=== PATIENT | female | born 1980 | race Caucasian/White ===

== ENCOUNTER → 2017-07-28 | Outpatient (CLI) | payer MEDICAID ==
[~2017-07-28] MED LIST: DCS100C PO; DOCU100C37 PO; ESTR0.62 PO; HYDR-34 PO; HYDR-3816 PO; IBP600T1 PO; IBUP-1773 PO; METH-336 PO; SERT25TA PO; SIME80TA16 PO; Simethicone PO
--- NOTE | 2017-07-30 16:56 | Diagnostic Imaging Report ---
EXAMINATION: Bilateral screening mammogram 2D views with tomosynthesis The current study was also evaluated with a Computer Aided Detection (CAD) system. INDICATION: Screening. No current complaints stated on the questionnaire. COMPARISON: None. This is a baseline study. FINDINGS: The breasts are composed of heterogenous parenchyma which may decrease mammographic sensitivity. There is an oval asymmetry measuring the 0.8 cm seen in the central aspect of the right breast between the anterior and middle depth. It appears to correspond with a slightly superior indication on the MLO projection. The left breast demonstrates no definite mass, architectural distortion or suspicious calcification. IMPRESSION: 8 mm focal asymmetry is seen in the central upper aspect of the right breast. Evaluation with focal compression view and ultrasound is recommended. ACR BI-RADS Category 0: Incomplete. (Needs additional imaging evaluation). Result letter will be mailed to the patient. Note: At least 10% of breast cancer is not imaged by mammography. Dictated by: Dictated on workstation # [id number]
== END ==
LOC: RAD 10:28
PROVIDERS: ATTEND Nurse Practitioner Family
DX: Z12.31 Encounter for screening mammogram for malignant neoplasm of breast (principal)
CPT/HCPCS: 77067

== ENCOUNTER → 2017-08-11 | Outpatient (CLI) | payer MEDICAID ==
--- NOTE | 2017-08-11 08:13 | Diagnostic Imaging Report ---
Diagnostic right breast mammogram with tomography evaluation. INDICATION: Lateral right breast asymmetry. FINDINGS: There is an outer right breast oval asymmetry confirmed on tomographic view with suggestion of central low-density in favor of an intramammary lymph node. It measures about 8 mm in size and is projecting superiorly on the lateral view at the junction between the anterior and middle thirds of the right breast. IMPRESSION: Confirmed 8-mm lobulated nodule in the outer upper aspect of the right breast anteriorly with findings suggestive of an intramammary lymph node. Ultrasound evaluation pending. ACR BI-RADS Category 0: Incomplete. (Needs additional imaging evaluation). Result letter will be mailed to the patient. Note: At least 10% of breast cancer is not imaged by mammography. Dictated by: Dictated on workstation # [id number]
--- NOTE | 2017-08-11 09:55 | Diagnostic Imaging Report ---
Right breast ultrasound. INDICATION: Nodule in the upper-outer aspect of the right breast anteriorly. FINDINGS: There is a cluster of cysts measuring collectively 8 x 4 x 6 mm at 11 o'clock zone, 3 cm from the nipple. Its shape and size matches the mammographic abnormality. In the upper-outer quadrant, no other lesion or suspicious abnormality identified. IMPRESSION: There is a cluster of cysts that matches the mammographic abnormality with no suspicious lesion seen. ACR BI-RADS Category 2: Benign findings. Result letter will be mailed to the patient. Note: At least 10% of breast cancer is not imaged by mammography. Dictated by: Dictated on workstation # [id number]
== END ==
LOC: RAD 07:25
PROVIDERS: ATTEND Nurse Practitioner Family
DX: R92.8 Other abnormal and inconclusive findings on diagnostic imaging of breast (principal)

== ENCOUNTER 2018-03-01 02:29 | Emergency (ER) | payer MEDICAID ==
[~2018-03-01] VITALS: Ht 170.2 cm; Wt 92.5 kg
[~2018-03-01 02:29] MED LIST changes: -HYDR-3816 PO
--- OUTSIDE RECORDS SUMMARY | 2018-03-01 02:35 | XMS REPORT ---
Author Author ROBERT CHANG [facility] [employer] Address Unknown Phone Unavailable Care Team Providers Care Chart Collector Name Role Phone ROBERT CHANG CP Unavailable Allergies, Adverse Reactions, Alerts Substance Reaction Event Type N.K.D.A. Info Not Available Non Drug Allergy Problems Problem Type Condition Code Onset Dates Condition Status Assessment History of alcoholism F10.21 Active Problem General medical examination Z00.00 Active Problem History of gestational diabetes Z86.32 Active Problem Mixed hyperlipidemia E78.2 Active Assessment Mixed hyperlipidemia E78.2 Active Assessment Left groin pain R10.30 Active Problem Menopausal disorder N95.9 Active Assessment Menopausal disorder N95.9 Active Medications Medication Code System Code Instructions Start Date End Date Status Dosage Fiber NDC 0 Orally not defined Doculase NDC 0 not defined Calcium [facility] [address]-77 150 [place] [address]-11 0.9 MG Orally Once a day 1 tablet Fish Oil [facility] [address]-86 1000 MG Orally Once a day 2 capsule Pravastatin Sodium [facility] [address]-81 10 mg Orally Once a day at bedtime April 04, 2016 1 tablet Sertraline HCl [facility] [address]-05 50 mg Orally Once a day 1.5 tablet Procedures Procedure Coding System Code Date Office Visit, Est Pt., Level 4 CPT-4 99928 May 22, 2016 VENIPUNCT, ROUTINE* CPT-4 80886 May 22, 2016 [facility] CPT-4 NOBLL May 22, 2016 Vital Signs Date/Time: May 22, 2016 Cardiac Monitoring Heart Rate 78 bpm Weight 222.7 lbs Height 67 in Blood Pressure Diastolic 78 mmHg Blood Pressure Systolic 119 mmHg Results No Known Results Summary Purpose eClinicalWorks Submission
--- OUTSIDE RECORDS SUMMARY | 2018-03-01 02:35 | XMS REPORT ---
Author Author KEN OLEARY [facility] Address [address] [place] [address] Care Team Providers Care Career Based Intervention Coordinator Name Role Phone KEN OLEARY Unavailable PROBLEMS Type Condition ICD9-CM Code AVZ72-HQ Code Onset Dates Condition Status SNOMED Code Problem Generalized anxiety disorder F41.1 Active 38542585 Problem ADHD, predominantly inattentive type F90.0 Active 00053164 Problem History of gestational diabetes Z86.32 Active 380524293 Problem Menopausal disorder N95.9 Active 000568242 Problem Mixed hyperlipidemia E78.2 Active 971234601 Problem General medical examination Z00.00 Active 295942787 ALLERGIES No Known Allergies SOCIAL HISTORY No smoking Hx information available PLAN OF CARE Activity Details Follow Up 3 Weeks Reason:BH F/U VITAL SIGNS MEDICATIONS No Known Medications RESULTS No Results PROCEDURES Procedure Date Ordered Related Diagnosis Body Site Psychotherapy, patient &/family, 45 minutes, established patient Nov 05, 2016 IMMUNIZATIONS No Known Immunizations
--- OUTSIDE RECORDS SUMMARY | 2018-03-01 02:35 | XMS REPORT ---
Author Author DELIA MELENDREZ [facility] Address [address] Care Team Providers Care Marketing Area Manager Name Role Phone DELIA MELENDREZ Unavailable PROBLEMS Type Condition ICD9-CM Code SEO88-PA Code Onset Dates Condition Status SNOMED Code Problem Mixed hyperlipidemia E78.2 Active 271322988 Problem General medical examination Z00.00 Active 777423437 Assessment Counseling on substance use and abuse Z71.89 07 May, 2016 Active 173878093 Problem History of gestational diabetes Z86.32 Active 574877504 Problem Menopausal disorder N95.9 Active 683363097 ALLERGIES Unknown Allergies SOCIAL HISTORY No smoking Hx information available PLAN OF CARE VITAL SIGNS MEDICATIONS Unknown Medications RESULTS No Results PROCEDURES Procedure Date Ordered Related Diagnosis Body Site AUDIT/DAST, 15-30 MIN May 22, 2016 IMMUNIZATIONS No Known Immunizations
--- OUTSIDE RECORDS SUMMARY | 2018-03-01 02:35 | XMS REPORT ---
Author Author DELIA MELENDREZ [facility] [employer] Address Unknown Phone Unavailable Care Team Providers Care Operating Engineer Name Role Phone DELIA MELENDREZ Unavailable Allergies No Known Allergies Problems Problem Type Condition Code Onset Dates Condition Status Problem General medical examination Z00.00 Active Problem History of gestational diabetes Z86.32 Active Problem Mixed hyperlipidemia E78.2 Active Problem Menopausal disorder N95.9 Active Medications No Known Medications Results No Known Results Summary Purpose eClinicalWorks Submission
--- OUTSIDE RECORDS SUMMARY | 2018-03-01 02:35 | XMS REPORT ---
Author Author SVEN KLINE Organization [employer] Address Unknown Phone Unavailable Care Team Providers Care Swing Type Lathe Operator Name Role Phone SVEN KLINE CP Unavailable Allergies, Adverse Reactions, Alerts Substance Reaction Event Type N.K.D.A. Info Not Available Non Drug Allergy Problems Problem Type Condition Code Onset Dates Condition Status Problem General medical examination Z00.00 Active Problem History of gestational diabetes Z86.32 Active Problem Mixed hyperlipidemia E78.2 Active Problem Menopausal disorder N95.9 Active Assessment Coccyx pain M53.3 Active Medications Medication Code System Code Instructions Start Date End Date Status Dosage Ibuprofen [facility] [address]-67 800 MG Orally Three times a day Aug 26, 2016 Sep 10, 2016 1 tablet Calcium [facility] [address]-82 150 MG Orally not defined Premarin [facility] [address]-91 0.9 MG Orally Once a day 1 tablet Pravastatin Sodium [facility] 61057682606 10 mg Orally Once a day at bedtime 1 tablet Doculase NDC 0 not defined Fiber NDC 0 Orally not defined Ibuprofen [facility] [address]-28 200 MG Orally every 6 hrs 4 tablet as needed Hydrocodone-Acetaminophen [facility] [address]-23 5-325 MG Orally every 6 hrs Aug 26, 2016 Aug 31, 2016 1 tablet as needed Procedures Procedure Coding System Code Date TORADOL (IM) 60 MG/2ML (UP TO 15 MG) CPT-4 J1885 Aug 26, 2016 THER/PROPH/DIAG INJ, SC/IM CPT-4 46197 Aug 26, 2016 X-RAY EXAM OF TAILBONE CPT-4 42018 Aug 26, 2016 Office Visit, Est Pt., Level 3 CPT-4 58155 Aug 26, 2016 Vital Signs Date/Time: Aug 26, 2016 Cardiac Monitoring Heart Rate 92 bpm Weight 228.0 lbs Height 67 in BMI 35.71 Index Blood Pressure Diastolic 70 mmHg Blood Pressure Systolic 104 mmHg Results No Known Results Summary Purpose eClinicalWorks Submission
--- OUTSIDE RECORDS SUMMARY | 2018-03-01 02:35 | XMS REPORT ---
Author Author KEN OLEARY [facility] Address [address] [place] [address] Care Team Providers Care Professor Of Spanish Name Role Phone KEN OLEARY Unavailable PROBLEMS Type Condition ICD9-CM Code BSF67-WM Code Onset Dates Condition Status SNOMED Code Assessment Generalized anxiety disorder F41.1 Oct, Active 13620615 Problem Generalized anxiety disorder F41.1 Active 88050555 Problem ADHD, predominantly inattentive type F90.0 Active 27459630 Problem History of gestational diabetes Z86.32 Active 881512507 Problem Menopausal disorder N95.9 Active 069496163 Problem Mixed hyperlipidemia E78.2 Active 240923305 Problem General medical examination Z00.00 Active 410626301 ALLERGIES Unknown Allergies SOCIAL HISTORY No smoking Hx information available PLAN OF CARE VITAL SIGNS MEDICATIONS Unknown Medications RESULTS No Results PROCEDURES Procedure Date Ordered Related Diagnosis Body Site Psychotherapy, patient &/family, 45 minutes, established patient Oct 29, 2016 IMMUNIZATIONS No Known Immunizations
--- OUTSIDE RECORDS SUMMARY | 2018-03-01 02:35 | XMS REPORT ---
Author Author KEN OLEARY [facility] Address [address] [place] [address] Care Team Providers Care Classified Ad Clerk Name Role Phone KEN OLEARY Unavailable PROBLEMS Type Condition ICD9-CM Code PVS32-PA Code Onset Dates Condition Status SNOMED Code Problem Generalized anxiety disorder F41.1 Active 04419637 Problem ADHD, predominantly inattentive type F90.0 Active 11535237 Problem Menopausal disorder N95.9 Active 273277203 Problem General medical examination Z00.00 Active 005074452 Problem Mixed hyperlipidemia E78.2 Active 806935812 Problem History of gestational diabetes Z86.32 Active 471986384 ALLERGIES No Known Allergies SOCIAL HISTORY No smoking Hx information available PLAN OF CARE Activity Details Follow Up 3 Weeks Reason:BH F/U VITAL SIGNS MEDICATIONS No Known Medications RESULTS No Results PROCEDURES Procedure Date Ordered Related Diagnosis Body Site Psychotherapy, patient &/family, 45 minutes, established patient Nov 26, 2016 IMMUNIZATIONS No Known Immunizations
--- OUTSIDE RECORDS SUMMARY | 2018-03-01 02:35 | XMS REPORT ---
Author Author LISANDRO ÁLVAREZ Organization [facility] Address [address] [place] [address] Care Team Providers Care Wedding Designer Name Role Phone LISANDRO ÁLVAREZ Unavailable PROBLEMS Type Condition ICD9-CM Code TGF60-GT Code Onset Dates Condition Status SNOMED Code Problem Generalized anxiety disorder F41.1 Active 81928556 Problem ADHD, predominantly inattentive type F90.0 Active 59355252 Problem Menopausal disorder N95.9 Active 142722189 Problem General medical examination Z00.00 Active 419092636 Problem Mixed hyperlipidemia E78.2 Active 014873622 Problem History of gestational diabetes Z86.32 Active 633558528 ALLERGIES No Known Allergies SOCIAL HISTORY Never Assessed PLAN OF CARE Activity Details Follow Up prn Reason: VITAL SIGNS Height 67 in 2017-04-14 Weight 182.6 lbs 2017-04-14 Temperature 97.8 degrees Fahrenheit 2017-04-14 Heart Rate 80 bpm 2017-04-14 Respiratory Rate 20 2017-04-14 BMI 28.60 kg/m2 2017-04-14 Blood pressure systolic 106 mmHg 2017-04-14 Blood pressure diastolic 70 mmHg 2017-04-14 MEDICATIONS Medication Instructions Dosage Frequency Start Date End Date Duration Status PredniSONE 20 MG Orally Once a day 2 tablet 24h March, Apr, 5 days Active Vyvanse 70 MG Orally Once a day 1 capsule in the morning 24h Active Premarin 0.9 MG Orally Once a day 1 tablet 24h 90 days Active Fiber Active Calcium 150 MG Active Pravastatin Sodium 10 mg Orally Once a day at bedtime 1 tablet Active RESULTS No Results PROCEDURES Procedure Date Ordered Result Body Site SOLUMEDROL (UP TO 125 MG) April 14, 2017 THER/PROPH/DIAG INJ, SC/IM April 14, 2017 IMMUNIZATIONS Vaccine Route Administration Date Status SOLUMEDROL (UP TO 125 MG) IM Intramuscular April 14, 2017 Administered MEDICAL (GENERAL) HISTORY Type Description Date Medical History gestational diabetes with all 3 children Medical History Endometriosis, Ovarian Cysts and Resulted in JOSE with Both Ovaries taken Medical History Recovered Alcoholic Clean nearly 3 years Surgical History section x3 Surgical History cyst removal Surgical History hysterectomy, total Surgical History Emergency Oophorectomy for contorted ovary Right Surgical History Left Oopherectomy 2010 Hospitalization History Surgery(s)/Childbirth(s) only
--- OUTSIDE RECORDS SUMMARY | 2018-03-01 02:35 | XMS REPORT | Continuity of Care Document ---
Author Author [facility] Address Unknown Phone Unavailable Allergies Active Description Code Type Severity Reaction Onset Reported/Identified Relationship to Patient Clinical Status Yes codeine [id number] Drug Allergy Unknown NAUSEA 12/27/2014 Yes codeine Drug Allergy N/A N/A 03/08/2015 Medications There is no data. Problems Date Dx Coded Attending Type Code Diagnosis Diagnosed By 12/27/2014 AV PASTRANA APRN Ot 427.69 PREMATURE BEATS NEC 12/27/2014 AV PASTRANA APRN Ot 785.1 PALPITATIONS 03/08/2015 SHERRI HARRISON APRN 625.3 DYSMENORRHEA 03/08/2015 SHERRI HARRISON APRN 626.2 MENORRHAGIA 05/08/2015 VINNIE EDWARDS DO Ot 625.9 05/08/2015 VINNIE EDWARDS DO Ot 626.9 05/25/2015 VINNIE EDWARDS DO Ot 568.0 PERITONEAL [id number]-[id number]-VQ/INF 05/25/2015 VINNIE EDWARDS DO Ot 614.6 FEM PELVIC PERITON ADH-POST-OP/INF 05/25/2015 VINNIE EDWARDS DO Ot 617.0 UTERINE ENDOMETRIOSIS 05/25/2015 VINNIE EDWARDS DO Ot 620.8 NONINFL DIS OVA/ADNX NEC 05/25/2015 VINNIE EDWADRS DO Ot 621.2 HYPERTROPHY OF UTERUS 05/25/2015 VINNIE EDWARDS DO Ot 621.8 DISORDERS OF UTERUS NEC 05/25/2015 VINNIE EDWARDS DO Ot 625.3 DYSMENORRHEA 05/25/2015 VINNIE EDWARDS DO Ot 626.2 EXCESSIVE MENSTRUATION 05/29/2015 VINNIE EDWARDS DO Ot 621.2 05/29/2015 VINNIE EDWARDS DO Ot 625.3 05/29/2015 VINNIE EDWARDS DO Ot 626.9 05/29/2015 VINNIE EDWARDS DO Ot V72.63 05/29/2015 FENECH DOVINNIE Ot V74.8 07/17/2015 FENECH DO, VINNIE Olsen Ot 625.9 07/17/2015 FENECH DO, VINNIE Olsen Ot 626.9 07/17/2015 FENECH DO, VINNIE Olsen Ot 621.2 07/17/2015 FENECH DO, VINNIE Olsen Ot 625.3 07/17/2015 FENECH DO, VINNIE Olsen Ot 626.9 07/17/2015 FENECH DO, VINNIE Olsen Ot V72.63 07/17/2015 FENECH DO, VINNIE Olsen Ot V74.8 07/17/2015 FENECH DO, VINNIE Olsen Ot 625.9 07/17/2015 FENECH DO, VINNIE Olsen Ot 626.9 07/17/2015 FENECH DO, VINNIE Olsen Ot 621.2 07/17/2015 FENECH DO, VINNIE Olsen Ot 625.3 07/17/2015 FENECH DO, VINNIE Olsen Ot 626.9 07/17/2015 FENECH DO, VINNIE Olsen Ot V72.63 07/17/2015 FENECH DO, VINNIE Olsen Ot V74.8 07/18/2015 FENECH DO, VINNIE Olsen Ot 620.5 TORSION OF OVARY OR TUBE 07/28/2017 GRACE DO VINNIE S Ot 625.9 FEM GENITAL SYMPTOMS NOS 07/28/2017 GRACE MUÑOZ VINNIE S Ot 626.9 MENSTRUAL DISORDER NOS 07/28/2017 GRACE MUÑOZ VINNIE S Ot 621.2 HYPERTROPHY OF UTERUS 07/28/2017 GRACE MUÑOZ VINNIE Olsen Ot 625.3 DYSMENORRHEA 07/28/2017 GRACE MUÑOZ VINNIE Olsen Ot 626.9 MENSTRUAL DISORDER NOS 07/28/2017 GRACE MUÑOZ VINNIE Olsen Ot V72.63 PRE-PROCEDURAL LABORATORY EXAMINATION 07/28/2017 GRACE MUÑOZ VINNIE Olsen Ot V74.8 SCREEN-BACTERIAL DIS NEC 08/12/2017 MAMADOU CARRILLO Ot Z12.31 ENCNTR SCREEN MAMMOGRAM FOR MALIGNANT NE 08/12/2017 MAMADOU CARRILLO Ot R92.8 OTH ABN AND INCONCLUSIVE FINDINGS ON DX 08/25/2017 MAMADOU CARRILLO Ot R92.8 OTH ABN AND INCONCLUSIVE FINDINGS ON DX 09/23/2017 GRACE MUÑOZ VINNIE S Ot 625.9 FEM GENITAL SYMPTOMS NOS 09/23/2017 FENVINNIE AMADOR DO Ot 626.9 MENSTRUAL DISORDER NOS 09/23/2017 VINNIE EDWARDS DO Ot 621.2 HYPERTROPHY OF UTERUS 09/23/2017 VINNIE EDWARDS DO Ot 625.3 DYSMENORRHEA 09/23/2017 VINNIE EDWARDS DO Ot 626.9 MENSTRUAL DISORDER NOS 09/23/2017 VINNIE EDWARDS DO Ot V72.63 PRE-PROCEDURAL LABORATORY EXAMINATION 09/23/2017 VINNIE EDWARDS DO Ot V74.8 SCREEN-BACTERIAL DIS NEC 09/23/2017 MAMADOU CARRILLO BRINA Ot Z12.31 ENCNTR SCREEN MAMMOGRAM FOR MALIGNANT NE 09/23/2017 MAMADOU CARRILLO BRNIA Ot R92.8 OTH ABN AND INCONCLUSIVE FINDINGS ON DX 10/13/2017 JARAD CABRERA [employer] PLANT OPERATOR Ot K57.32 DVTRCLI OF LG INT W/O PERFORATION OR ABS Procedures Code [place] [address] TEST, URINE (IN- HOUSE) 03/08/2015 Results There is no data. Encounters ACCT No. Visit Date/Time Discharge Status Pt. Type Provider Facility Loc./Unit Complaint [id number] 03/08/2015 17:13:00 03/08/2015 23:59:59 CLS Outpatient SHERRI HARRISON APRN [id number] 09/23/2017 08:02:00 09/23/2017 23:59:59 CLS Outpatient JARAD CABRERA APRN [facility] RAD L FLANK PAIN, HEMATURIA [id number] 08/11/2017 07:25:00 08/11/2017 23:59:59 CLS Outpatient MAMADOU CARRILLO [facility] RAD ABN MAMMO R92.8 [id number] 07/28/2017 10:28:00 07/28/2017 23:59:59 CLS Outpatient MAMADOU CARRILLO [facility] RAD Z12.31 [id number] 07/17/2015 16:50:00 07/18/2015 08:50:00 DIS Outpatient VINNIE EDWARDS DO [facility] DIAGNOSTIC LAPAROSCOPY,POSSIBLE LEFT OOPHORECTOMY [id number] 05/24/2015 06:11:00 05/25/2015 11:00:00 DIS Outpatient VINNIE EDWARDS DO [facility] SDC ABNORMAL UTERINE BLEEDING [id number] 05/15/2015 09:00:00 05/15/2015 23:59:59 CLS Outpatient VINNIE EDWARDS DO [facility] PREOP ABNORMAL UTERINE BLEEDING [id number] 04/18/2015 12:10:00 04/18/2015 23:59:59 CLS Outpatient VINNIE EDWARDS DO [facility] RAD AUV [id number] 12/27/2014 22:13:00 12/27/2014 23:31:00 DIS Emergency AV PASTRANA APRN [facility] ER HEART PALPITATIONS;SOA [id number] 02/10/2018 13:10:00 02/10/2018 23:59:59 CLS Outpatient [facility]
[2018-03-01] MEDS ORDERED: LACTATED RINGERS 1,000 ML IV ONE (02:58)
[2018-03-01] MEDS ORDERED: metroNIDAZOLE 500MG/100ML IVPB 100 ML IV ONE (03:00)
[2018-03-01] MEDS ORDERED: KETOROLAC 30 MG/ML VIAL IV ONE (03:00)
[2018-03-01] MEDS ORDERED: CIPROFLOXACIN IV 400MG/200ML 200 ML IV ONE (03:00)
[2018-03-01 03:10] LABS: BASOPHILS % (AUTO) 0 % (0-10); EOSINOPHILS # (AUTO) 0.2 10^3/uL (0.0-0.3); EOSINOPHILS % (AUTO) 3 % (0-10); HEMATOCRIT 38 % (35-52); HEMOGLOBIN 12.8 G/DL (11.5-16.0); LYMPHOCYTES % (AUTO) 33 % (12-44); MEAN CORPUSCULAR HEMOGLOBIN 28 PG (25-34); MEAN CORPUSCULAR HGB CONC 34 G/DL (32-36); MEAN CORPUSCULAR VOLUME 84 FL (80-99); MEAN PLATELET VOLUME 10.3 FL (7.4-10.4); MONOCYTES # (AUTO) 0.8 X 10^3 (0.0-1.0); MONOCYTES % (AUTO) 9 % (0-12); NEUTROPHILS # (AUTO) 5.1 X 10^3 (1.8-7.8); NEUTROPHILS % (AUTO) 56 % (42-75); PLATELET COUNT 244 10^3/uL (130-400); RED CELL DISTRIBUTION WIDTH 12.3 % (10.0-14.5); WHITE BLOOD COUNT 9.1 10^3/uL (4.3-11.0)
[2018-03-01 03:13] LABS: BILIRUBIN,URINE NEGATIVE (NEGATIVE); CLARITY,URINE CLEAR; COLOR,URINE YELLOW; GLUCOSE, URINE (UA) NEGATIVE (NEGATIVE); KETONES,URINE NEGATIVE (NEGATIVE); LEUKOCYTE ESTERASE ,URINE NEGATIVE (NEGATIVE); NITRITE,URINE NEGATIVE (NEGATIVE); PH,URINE 6 (5-9); PROTEIN,URINE NEGATIVE (NEGATIVE); UROBILINOGEN,URINE NORMAL (NORMAL)
[2018-03-01 03:20] LABS: BACTERIA,URINE TRACE /HPF
[2018-03-01 03:28] LABS: ALANINE AMINOTRANSFERASE 11 U/L (0-55); ALBUMIN 4.1 GM/DL (3.2-4.5); ALKALINE PHOSPHATASE 76 U/L (40-136); BILIRUBIN,TOTAL 0.4 MG/DL (0.1-1.0); BUN/CREATININE RATIO 13; CARBON DIOXIDE 24 MMOL/L (21-32); CHLORIDE 106 MMOL/L (98-107); CREATININE SERUM 0.72 MG/DL (0.60-1.30); GFR ESTIMATED > 60; GLUCOSE 96 MG/DL (70-105); POTASSIUM 3.8 MMOL/L (3.6-5.0); SODIUM 139 MMOL/L (135-145); TOTAL PROTEIN 6.5 GM/DL (6.4-8.2)
[2018-03-01] MEDS ORDERED: ESTR0.9T (03:38)
[2018-03-01] MEDS ORDERED: PRAV10TA (03:38)
[2018-03-01] MEDS ORDERED: ALPR0.5T7 (03:38)
[2018-03-01] MEDS ORDERED: LISD50CA (03:38)
[2018-03-01] MEDS ORDERED: IOHEXOL 350 MG/ML 100 ML (OMNIPAQUE 350) VIAL IV ONE (03:45)
[2018-03-01] MEDS ORDERED: NS 250 ML (IVPB) BAG IV ONE (03:45)
--- NOTE | 2018-03-01 03:49 | ED Abdominal Pain ---
General Chief Complaint: Abdominal/GI Problems Stated Complaint: L SIDE PAIN Nursing Triage Note: PT REPORTS PAIN IN LEFT LOWER QUADRANT SINCE 1700 YESTERDAY. PT REPORTS FEELING SIMILAR TO DIVERTICULITIS HX. Sepsis Screen: No Definite Risk Source of Information: Patient Exam Limitations: No Limitations History of Present Illness Date Seen by Provider: Mar 01, 2018 Time Seen by Provider: 02:40 Initial Comments The patient presents to the ER by private conveyance with chief complaint that tonight she started having some left lower quadrant abdominal pain. She had a normal bowel movement yesterday. No fevers chills or nausea. The history of diverticulitis and was what she suspects is going on tonight. She is sustained no trauma. She takes cement anxiety medicines. She is not had anything for pain tonight and does not want anything narcotic if she can avoid it. She has nausea medicines at home but has not had to use them. She is also concerned because she has a large test today that she needs to take. She has a history of surgical hysterectomy and later had her ovaries removed secondary to torsion. She has had 3 C-sections and 9 separate laparoscopies for ovarian cysts. She has her own gallbladder and appendix still intact. Allergies and Home Medications Allergies Coded Allergies: codeine (Verified Allergy, Unknown, NAUSEA, 12/27/14) Home Medications Ciprofloxacin HCl 500 Mg Tablet, 500 MG PO BID Prescribed by: SHARYN LASSITER on 03/01/18414 Docusate Sodium 100 Mg Capsule, 100 MG PO BID PRN for CONSTIPATION Prescribed by: VINNIE EDWARDS on 07/18/15 08 Hydrocodone Bit/Acetaminophen 1 Each Tablet, 1-2 EA PO Q6H PRN for PAIN Prescribed by: VINNIE EDWARDS on 07/18/15809 Ibuprofen 600 Mg Tablet, 600 MG PO Q6H PRN for PAIN Prescribed by: VINNIE EDWARDS on 07/18/15809 Metronidazole 500 Mg Tablet, 500 MG PO Q8H Prescribed by: SHARYN LASSITER on 03/01/18414 Sertraline HCl 25 Mg Tablet, 25 MG PO DAILY, (Reported) Simethicone 80 Mg Tab.chew, 40 MG PO TID PRN for INDIGESTION Prescribed by: VINNIE EDWARDS on 07/18/15 08 Patient Home Medication List Home Medication List Reviewed: Yes Review of Systems Constitutional: No chills, No diaphoresis, No fever, No malaise EENTM: No Blurred Vision, No Double Vision Respiratory: Denies Cough, Denies Shortness of Air Cardiovascular: Denies Chest Pain, Denies Edema Gastrointestinal: See HPI; Denies Abdomen Distended; Abdominal Pain; Denies Blood Streaked Stools, Denies Constipated, Denies Diarrhea, Denies Nausea Genitourinary: Denies Burning, Denies Discharge, Denies Drainage Musculoskeletal: No back pain, No joint pain Past Kllthwf-Vwevmy-Tdlizz Hx Patient Social History Alcohol Use: Occasionally Uses Recreational Drug Use: No Smoking Status: Never a Smoker Recent Foreign Travel: No Contact w/Someone Who Travel: No Recent Infectious Disease Expo: No Recent Hopitalizations: No Seasonal Allergies Seasonal Allergies: No Past Medical History Surgeries: Yes (C/S X3, DXLS X3 R/T ENDOMETROISIS AND OVARIAN CYST) Section, Hysterectomy, Oophorectomy, Tonsillectomy Respiratory: No Cardiac: Yes (PVC AT TIMES) Neurological: No 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 Genitourinary: No Gastrointestinal: No Musculoskeletal: No Endocrine: No HEENT: No Cancer: No Psychosocial: Yes Anxiety, Depression Integumentary: No Blood Disorders: No Adverse Reaction/Blood Tranf: No Family Medical History Alcoholism 19 FATHER Arthritis GRANDPARENTS Cataracts GRANDPARENTS Diabetes mellitus GRANDPARENTS FH: breast cancer GRANDPARENTS No Family History of: AIDS Abdominal aortic aneurysm Asthma Cancer of mouth Cardiovascular disease Colon cancer Completed stroke Dementia Drug abuse Glaucoma Hypertension Kidney disease Myocardial infarction Parkinson's disease Prostate cancer Psychosocial problem Respiratory disorder Seizure disorder Severe allergy Thyroid disease Tuberculosis No Pertinent Family Hx Physical Exam Vital Signs Vital Signs - First Documented 03/01/18 02:38 Temp 97.0 Pulse 76 Resp 20 B/P (MAP) 124/74 (91) Pulse Ox 98 O2 Delivery Room Air Capillary Refill : Less Than 3 Seconds General Appearance: WD/WN, mild distress HEENT: PERRL/EOMI, pharynx normal Neck: non-tender, supple, normal inspection Respiratory: chest non-tender, lungs clear, normal breath sounds, no respiratory distress, no accessory muscle use Cardiovascular: normal peripheral pulses, regular rate, rhythm, no edema Peripheral Pulses: 2+ Radial Pulses (R), 2+ Radial Pulses (L) Gastrointestinal: normal bowel sounds, soft, tenderness (left lower quadrant) Neurologic/Psychiatric: alert, normal mood/affect, oriented x 3 Skin: normal color, warm/dry Progress/Results/Core Measures Lab Results Laboratory Tests Test 03/01/18 02:40 03/01/18 02:58 Range/Units Urine Color YELLOW Urine Clarity CLEAR Urine pH 6 5-9 Urine Specific [place] 1.020 1.016-1.022 Urine Protein NEGATIVE NEGATIVE Urine Glucose (UA) NEGATIVE NEGATIVE Urine Ketones NEGATIVE NEGATIVE Urine Nitrite NEGATIVE NEGATIVE Urine Bilirubin NEGATIVE NEGATIVE Urine Urobilinogen NORMAL NORMAL MG/DL Urine Leukocyte Esterase NEGATIVE NEGATIVE Urine RBC (Auto) 1+ H NEGATIVE Urine RBC 2-5 H /HPF Urine WBC NONE /HPF Urine Squamous Epithelial Cells 2-5 /HPF Urine Crystals NONE /LPF Urine Bacteria TRACE /HPF Urine Casts NONE /LPF Urine Mucus NEGATIVE /LPF Urine Culture Indicated NO White Blood Count 9.1 4.3-11.0 10^3/uL Red Blood Count 4.50 4.35-5.85 10^6/uL Hemoglobin 12.8 11.5-16.0 G/DL Hematocrit 38 35-52 % Mean Corpuscular Volume 84 80-99 FL Mean Corpuscular Hemoglobin 28 25-34 PG Mean Corpuscular Hemoglobin Concent 34 32-36 G/DL Red Cell Distribution Width 12.3 10.0-14.5 % Platelet Count 244 130-400 10^3/uL Mean Platelet Volume 10.3 7.4-10.4 FL Neutrophils (%) (Auto) 56 42-75 % Lymphocytes (%) (Auto) 33 12-44 % Monocytes (%) (Auto) 9 0-12 % Eosinophils (%) (Auto) 3 0-10 % Basophils (%) (Auto) 0 0-10 % Neutrophils # (Auto) 5.1 1.8-7.8 X 10^3 Lymphocytes # (Auto) 3.0 1.0-4.0 X 10^3 Monocytes # (Auto) 0.8 0.0-1.0 X 10^3 Eosinophils # (Auto) 0.2 0.0-0.3 10^3/uL Basophils # (Auto) 0.0 0.0-0.1 10^3/uL Sodium Level 139 135-145 MMOL/L Potassium Level 3.8 3.6-5.0 MMOL/L Chloride Level 106 98-107 MMOL/L Carbon Dioxide Level 24 21-32 MMOL/L Anion Gap 9 5-14 MMOL/L Blood Urea Nitrogen 9 7-18 MG/DL Creatinine 0.72 0.60-1.30 MG/DL Estimat Glomerular Filtration Rate > 60 BUN/Creatinine Ratio 13 Glucose Level 96 70-105 MG/DL Calcium Level 9.0 8.5-10.1 MG/DL Total Bilirubin 0.4 0.1-1.0 MG/DL Aspartate Amino Transf (AST/SGOT) 11 5-34 U/L Alanine Aminotransferase (ALT/SGPT) 11 0-55 U/L Alkaline Phosphatase 76 40-136 U/L C-Reactive Protein High Sensitivity 2.69 H 0.00-0.50 MG/DL Total Protein 6.5 6.4-8.2 GM/DL Albumin 4.1 3.2-4.5 GM/DL My Orders Orders - SHARYN LASSITER Ketorolac Injection (Toradol Injection) (03/01/18 03:00) Cbc With Automated Diff (03/01/18 02:52) Comprehensive Metabolic Panel (03/01/18 02:52) Hs C Reactive Protein (03/01/18 02:52) Ua Culture If Indicated (03/01/18 02:52) Ciprofloxacin Iv 400mg/200ml (Cipro Iv S (03/01/18 03:00) Metronidazole 500mg/100ml Ivpb (Flagyl 5 (03/01/18 03:00) Saline Lock/Iv-Start (03/01/18 02:58) Lactated Ringers (Lr 1000 Ml Iv Solution (03/01/18 02:58) Ct Abdomen/Pelvis W (03/01/18 02:58) Iohexol Injection (Omnipaque 350 Mg/Ml 1 (03/01/18 03:45) Ns (Ivpb) (Sodium Chloride 0.9%) (03/01/18 03:45) Medications Given in ED Current Medications Medications Dose Ordered Sig/Brittani Route Start Time Stop Time Status Last Admin Dose Admin Ciprofloxacin/ Dextrose 200 ml @ 200 mls/hr ONCE ONCE IV 03/01/18 03:00 03/01/18 03:59 DC 03/01/18 03:47 200 MLS/HR Iohexol 100 ml ONCE ONCE IV 03/01/18 03:45 03/01/18 03:47 DC 03/01/18 03:40 100 ML Ketorolac Tromethamine 30 mg ONCE ONCE IV 03/01/18 03:00 03/01/18 03:01 DC 03/01/18 03:10 30 MG Lactated Ringer's 1,000 ml @ 0 mls/hr Q0M ONCE IV 03/01/18 02:58 03/01/18 02:59 DC 03/01/18 03:10 999 MLS/HR Metronidazole 100 ml @ 100 mls/hr ONCE ONCE IV 03/01/18 03:00 03/01/18 03:59 DC 03/01/18 03:47 100 MLS/HR Sodium Chloride 250 ml ONCE ONCE IV 03/01/18 03:45 03/01/18 03:47 DC 03/01/18 03:40 80 ML Vital Signs/I&O 03/01/18 03/01/18 02:38 03:10 Temp 97.0 97.0 Pulse 76 Resp 20 B/P (MAP) 124/74 (91) Pulse Ox 98 O2 Delivery Room Air Blood Pressure Mean: 91 Progress Note #1: Time: 03:47 Progress Note Diverticulitis versus possible bowel issues related to adhesions. We'll get a CT scan which would rule out free air or perforation/abscess as well as some labs and urine. We'll give her Toradol for her pain and Cipro and Flagyl for her initial antibiotics however she will probably be okay to be treated at home if she does not have perforation or abscess or other surgical emergency. Progress Note #2: Time: 04:17 Progress Note The patient is resting comfortably trying to sleep while she gets her infusion of initial antibiotics. She appears well enough that she would be fine for outpatient therapy of diverticulitis. She has follow-up plans tomorrow with [facility]. Diagonstic Imaging: CT Plain Films/CT/US/NM/MRI: abdomen, pelvis Comments Proximal sigmoid diverticulitis without free air. Impression: Acute diverticulitis including the proximal sigmoid colon. No evidence of rupture or abscess or adjacent abscess. Reviewed: Reviewed [place] Study, Reviewed by Me Departure Impression Primary Impression: Diverticulitis of intestine Qualified Codes: K57.32 - Diverticulitis of large intestine without perforation or abscess without bleeding Disposition: 01 HOME, SELF-CARE Condition: Improved Departure-Patient Inst. Decision time for Depature: 04:48 Referrals: LATASHA CUTLER MD (PCP) Primary Care Physician MAMADOU CARRILLO (Family) Primary Care Physician Patient Instructions: Diverticulitis (DC) Add. Discharge Instructions: Clear liquid diet and follow-up in 2-3 days with your primary care provider. Tylenol 1000 mg every 8 hours and ibuprofen 800 mg every 8 hours as needed for pain. Take the ciprofloxacin and Flagyl each twice a day to completion. All discharge instructions reviewed with patient and/or family. Voiced understanding. Scripts Metronidazole (Flagyl) 500 Mg Tablet 500 MG PO Q8H for 7 Days, #21 TAB 0 Refills Prov: SHARYN LASSITER 03/01/18 Ciprofloxacin HCl (Ciprofloxacin HCl) 500 Mg Tablet 500 MG PO BID for 7 Days, #14 TAB 0 Refills Prov: SHARYN LASSITER 03/01/18 Work/School Note: School/Childcare Release Date Seen in the Emergency Department: Mar 01, 2018 Time Dismissed from Emergency Department: 06:00 Return to School: Mar 04, 2018 Restrictions: No Restrictions Copy Copies To 1: LATASHA CUTLER MD, TITUS J Mar 01, 2018 03:49
[2018-03-01] MEDS ORDERED: METR500T PO (04:15)
[2018-03-01] MEDS ORDERED: CIPR500T4 PO (04:15)
[2018-03-01] MEDS ORDERED: ONDA4TAB11 PO (04:52)
[2018-03-01] MEDS ORDERED: ACHD5005 PO (04:52)
[2018-03-01] MEDS ORDERED: ACETAMINOPHEN 500 MG TAB (TYLENOL) PO ONE (05:00)
[2018-03-01 05:30] VITALS: BP 121/69
--- NOTE | 2018-03-01 07:19 | Diagnostic Imaging Report ---
PROCEDURE: CT abdomen and pelvis with contrast. TECHNIQUE: Multiple contiguous axial images were obtained through the abdomen and pelvis after administration of intravenous contrast. INDICATION: Left lower quadrant pain. Study compared 09/23/2017. FINDINGS: There is perisigmoidal edema and inflammatory changes in the left lower quadrant where there is regional diverticulosis. The findings are most consistent with focal sigmoid diverticulitis at the junction of the descending and sigmoid colon. There is no free air or extraluminal gas to suggest transmural perforation and no resultant bowel obstruction. There is no abscess or drainable fluid collection. There is no bowel obstruction. No other segmental inflammatory change. Liver, spleen, adrenals, pancreas, gallbladder and unobstructed kidneys appeared nonacute. IMPRESSION: Sigmoid diverticulitis without abscess, obstruction or findings of transmural perforation. No other acute feature. Dictated by: Dictated on workstation # [id number]
== END 2018-03-01 05:30 | disposition home or self-care (01) ==
LOC: EDUNIT# 02:29 → ER 02:31
DX: K57.92 Diverticulitis of intestine, part unspecified, without perforation or abscess without bleeding (principal); F41.9 Anxiety disorder, unspecified; F32.9 Major depressive disorder, single episode, unspecified; Z90.710 Acquired absence of both cervix and uterus; Z88.5 Allergy status to narcotic agent; Z90.89 Acquired absence of other organs; Z80.3 Family history of malignant neoplasm of breast; Z87.59 Personal history of other complications of pregnancy, childbirth and the puerperium; Z87.448 Personal history of other diseases of urinary system
CPT/HCPCS: 36415; 74177; 80053; 81000; 85025; 86141; 96361; 96365; 96367; 96375

== ENCOUNTER → 2021-08-27 | Outpatient (CLI) | payer BC, MEDICAID ==
[~2021-08-27] MED LIST changes: +ACHD5005 PO; +ALPR0.5T7; +CIPR500T5 PO; +ESTR0.9T; +LISD50CA; +METR500T PO; +ONDA4TAB11 PO; +PRAV10TA
--- NOTE | 2021-08-27 17:39 | Diagnostic Imaging Report ---
INDICATION: Routine screening. COMPARISON is made with prior mammogram from 07/28/2017. 2-D and 3-D bilateral screening mammography was performed with CAD. Scattered fibroglandular densities are identified bilaterally. The parenchymal pattern is stable. No mass or malignant-appearing microcalcifications are seen. Axillae are unremarkable. IMPRESSION: BI-RADS Category 1. No mammographic features suspicious for malignancy are identified. ACR BI-RADS Category 1: Negative. Result letter will be mailed to the patient. Note: At least 10% of breast cancer is not imaged by mammography. Dictated by: Dictated on workstation # [id number]
== END ==
LOC: RAD 12:52
PROVIDERS: ATTEND Obstetrics & Gynecology
DX: Z12.31 Encounter for screening mammogram for malignant neoplasm of breast (principal)
CPT/HCPCS: 77063; 77067

== ENCOUNTER 2021-11-09 14:04 | Emergency (ER) | payer BC, MEDICAID ==
[~2021-11-09] VITALS: Ht 170 cm; Wt 97.5 kg
[2021-11-09] MEDS ORDERED: ALPRAZolam 0.5 MG (XANAX) TAB PO SCH (14:15)
--- NOTE | 2021-11-09 14:19 | ED General ---
General Stated Complaint: COVID + NUMBNESS IN HANDS Source of Information: Patient Exam Limitations: No Limitations (AV PASTRANA APRN) History of Present Illness Date Seen by Provider: Nov 09, 2021 Time Seen by Provider: 14:17 Initial Comments To ER with reports that she is Covid positive and has numbness inside her nose and at various points on her arms. She is vaccinated with Pfizer. She tested positive on 11/03/2021. On 11/05/[address] Abhijit Berrios and tested + for Covid and started dexamethasone x5 days, ivermectin x6 days, zithromax pack, and albuterol. Timing/Duration: Changing Over Time Severity: Moderate Associated Systoms: Fever/Chills (had fevers until 2 days ago); No Headaches, No Nausea/Vomiting (AV PASTRANA APRN) Allergies and Home Medications Allergies Coded Allergies: codeine (Verified Allergy, Unknown, NAUSEA, 12/27/14) Patient Home Medication List Home Medication List Reviewed: Yes (AV PASTRANA APRN) Alprazolam (Alprazolam) 0.5 Mg Tablet, (Reported) Entered as Reported by: JENNIFER LAUGHLIN on 03/01/18337 Ciprofloxacin HCl (Ciprofloxacin HCl) 500 Mg Tablet, 500 MG PO BID Prescribed by: SHARYN LASSITER on 03/01/18414 Docusate Sodium (Docusate Sodium) 100 Mg Capsule, 100 MG PO BID PRN for CONSTIPATION Prescribed by: VINNIE EDWARDS on 07/18/15 08 Estrogens, Conjugated (Premarin) 0.9 Mg Tablet, (Reported) Entered as Reported by: JENNIFER LAUGHILN on 03/01/18337 Hydrocodone Bit/Acetaminophen (Lortab 7.5 Mg Tablet) 1 Each Tablet, 1-2 EA PO Q6H PRN for PAIN Prescribed by: VINNIE EDWARDS on 07/18/15 08 Hydrocodone Bit/Acetaminophen (Lortab 5 Mg Tablet) 1 Tab Tab, 1-2 EACH PO Q6H PRN for BREAKTHROUGH PAIN Prescribed by: SHARYN LASSITER on 03/01/18 045 Ibuprofen (Ibuprofen) 600 Mg Tablet, 600 MG PO Q6H PRN for PAIN Prescribed by: VINNIE EDWARDS on 07/18/15 0810 Lisdexamfetamine Dimesylate (Vyvanse) 50 Mg Capsule, (Reported) Entered as Reported by: JENNIFER LAUGHLIN on 03/01/18 0338 Metronidazole (Flagyl) 500 Mg Tablet, 500 MG PO Q8H Prescribed by: SHARYN LASSITER on 03/01/18 0415 Ondansetron (Ondansetron Odt) 4 Mg Tab.rapdis, 4 MG PO Q6H PRN for NAUSEA/VOMITING Prescribed by: SHARYN LASSITER on 03/01/18 0452 Pravastatin Sodium (Pravastatin Sodium) 10 Mg Tablet, (Reported) Entered as Reported by: JENNIFER LAUGHLIN on 03/01/18 033 Sertraline HCl (Zoloft) 25 Mg Tablet, 25 MG PO DAILY, (Reported) Entered as Reported by: GLEN CALVO on 07/17/15 1306 Simethicone (Simethicone) 80 Mg Tab.chew, 40 MG PO TID PRN for INDIGESTION Prescribed by: VINNIE EDWARDS on 07/18/15 0810 Review of Systems Review of Systems Constitutional: see HPI EENTM: see HPI Respiratory: no symptoms reported; No cough, No dyspnea on exertion, No short of breath Cardiovascular: no symptoms reported Genitourinary: no symptoms reported Musculoskeletal: no symptoms reported Skin: no symptoms reported Psychiatric/Neurological: No Symptoms Reported Hematologic/Lymphatic: No Symptoms Reported (AV PASTRANA APRN) Past Npbjcbk-Iplplf-Iaojhs Hx Seasonal Allergies Seasonal Allergies: No (AV PASTRANA APRN) Past Medical History Surgeries: Yes (C/S X3, DXLS X3 R/T ENDOMETROISIS AND OVARIAN CYST) Section, Hysterectomy, Oophorectomy, Tonsillectomy Respiratory: No Cardiac: Yes (PVC AT TIMES) Neurological: No 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 Genitourinary: No Gastrointestinal: No Musculoskeletal: No Endocrine: No HEENT: No Cancer: No Psychosocial: Yes Anxiety, Depression Integumentary: No Blood Disorders: No Adverse Reaction/Blood Tranf: No (AV PASTRANA APRN) Family Medical History Alcoholism 19 FATHER Arthritis GRANDPARENTS Cataracts GRANDPARENTS Diabetes mellitus GRANDPARENTS FH: breast cancer GRANDPARENTS No Family History of: AIDS Abdominal aortic aneurysm Asthma Cancer of mouth Cardiovascular disease Colon cancer Completed stroke Dementia Drug abuse Glaucoma Hypertension Kidney disease Myocardial infarction Parkinson's disease Prostate cancer Psychosocial problem Respiratory disorder Seizure disorder Severe allergy Thyroid disease Tuberculosis No Pertinent Family Hx (AV PASTRANA APRN) Physical Exam Vital Signs Vital Signs - First Documented 11/09/21 14:09 Temp 36.6 Pulse 102 Resp 20 B/P (MAP) 138/84 (102) Pulse Ox 97 (TAWANDALANCE Linda DO) Vital Signs Capillary Refill : (AV PASTRANA APRN) Height, Weight, BMI Height: 5'7.00" Weight: 204lbs. oz. 92.688549wr; BMI Method:Stated General Appearance: No Apparent Distress, WD/WN, Anxious, Other (97% room air, HR 80s. ) Eyes: Bilateral Eye Normal Inspection, Bilateral Eye PERRL, Bilateral Eye EOMI HEENT: PERRL/EOMI, TMs Normal Neck: Full Range of Motion, Normal Inspection Respiratory: No Accessory Muscle Use, No Respiratory Distress Cardiovascular: Regular Rate, Rhythm, Normal Peripheral Pulses Extremity: Normal Capillary Refill, Normal Inspection Neurologic/Psychiatric: Alert, Oriented x3 (AV PASTRANA APRN) Progress/Results/Core Measures Suspected Sepsis SIRS Temperature: Pulse: Respiratory Rate: Laboratory Tests 11/09/21 14:19: White Blood Count 10.7 Blood Pressure / Mean: Laboratory Tests 11/09/21 14:19: Creatinine 0.81, Platelet Count 323, Total Bilirubin 0.2 (AV PASTRANA APRN) Results/Orders Lab Results Laboratory Tests Test 11/09/21 14:19 Range/Units White Blood Count 10.7 4.3-11.0 10^3/uL Red Blood Count 4.65 3.80-5.11 10^6/uL Hemoglobin 13.3 11.5-16.0 g/dL Hematocrit 40 35-52 % Mean Corpuscular Volume 86 80-99 fL Mean Corpuscular Hemoglobin 29 25-34 pg Mean Corpuscular Hemoglobin Concent 33 32-36 g/dL Red Cell Distribution Width 12.0 10.0-14.5 % Platelet Count 323 130-400 10^3/uL Mean Platelet Volume 9.7 9.0-12.2 fL Immature Granulocyte % (Auto) 2 % Neutrophils (%) (Auto) 72 42-75 % Lymphocytes (%) (Auto) 22 12-44 % Monocytes (%) (Auto) 4 0-12 % Eosinophils (%) (Auto) 0 0-10 % Basophils (%) (Auto) 0 0-10 % Neutrophils # (Auto) 7.7 1.8-7.8 10^3/uL Lymphocytes # (Auto) 2.4 1.0-4.0 10^3/uL Monocytes # (Auto) 0.4 0.0-1.0 10^3/uL Eosinophils # (Auto) 0.0 0.0-0.3 10^3/uL Basophils # (Auto) 0.0 0.0-0.1 10^3/uL Immature Granulocyte # (Auto) 0.2 H 0.0-0.1 10^3/uL D-Dimer < 0.27 0.00-0.49 UG/ML Sodium Level 137 135-145 MMOL/L Potassium Level 4.0 3.6-5.0 MMOL/L Chloride Level 102 98-107 MMOL/L Carbon Dioxide Level 21 21-32 MMOL/L Anion Gap 14 5-14 MMOL/L Blood Urea Nitrogen 14 7-18 MG/DL Creatinine 0.81 0.60-1.30 MG/DL Estimat Glomerular Filtration Rate 78 BUN/Creatinine Ratio 17 Glucose Level 139 H 70-105 MG/DL Calcium Level 9.5 8.5-10.1 MG/DL Corrected Calcium 9.2 8.5-10.1 MG/DL Total Bilirubin 0.2 0.1-1.0 MG/DL Aspartate Amino Transf (AST/SGOT) 15 5-34 U/L Alanine Aminotransferase (ALT/SGPT) 16 0-55 U/L Alkaline Phosphatase 66 40-136 U/L C-Reactive Protein High Sensitivity 0.16 0.00-0.50 MG/DL Total Protein 7.4 6.4-8.2 GM/DL Albumin 4.4 3.2-4.5 GM/DL Serum Test, Qualitative NEGATIVE NEGATIVE (LANCE NEFF DO) Vital Signs/I&O 11/09/21 11/09/21 14:09 15:52 Temp 36.6 Pulse 102 88 Resp 20 20 B/P (MAP) 138/84 (102) 128/72 Pulse Ox 97 97 (LANCE NEFF DO) Vital Signs/I&O Capillary Refill : (AV PASTRANA APRN) Departure Communication (Admissions) NAME: MARIO CASAS [facility] REC#: [id number] PT STATUS: REG ER : 1980 PHYSICIAN: AV PASTRANA APRN ADMIT DATE: 11/09/21/ER Signed Date of Exam:11/09/21 CHEST 1 VIEW, AP/PA ONLY INDICATION: Shortness of air COMPARISON: None available. TECHNIQUE: Single radiograph of the chest dated 11/09/2021. FINDINGS: The cardiac silhouette is within normal limits in size. No significant pulmonary vascular congestion. Patchy bilateral mild interstitial pulmonary opacities are noted bilaterally. No pleural effusion. No pneumothorax. No acute osseous abnormality. IMPRESSION: Mild patchy bilateral pulmonary infiltrates, potentially related to underlying pneumonia. Dictated by: Dictated on workstation # [id number] Dict: 11/09/21 1443 Trans: 11/09/21 1518 CVB [id number] Interpreted by: KARINA CLEMENTS MD Electronically signed by: KARINA CLEMENTS MD 11/09/21 1518 (AV PASTRANA APRN) Impression Primary Impression: COVID-19 Additional Impression: Paresthesia Disposition: 01 HOME, SELF-CARE Condition: Stable Departure-Patient Inst. Decision time for Depature: 14:25 (AV PASTRANA APRN) Referrals: LATASHA CUTLER MD (PCP/Family) Primary Care Physician Patient Instructions: COVID-19 ED, Paresthesia (DC) ATTENDING PHYSICIAN NOTE: I WAS PHYSICALLY PRESENT ER PHYSICIAN WHEN THIS PATIENT WAS IN ER, BUT I WAS NOT INVOLVED IN ANY DECISION MAKING OR ANY CARE OF THIS PATIENT. (LANCE NEFF DO) AV PASTRANA APRN Nov 09, 2021 14:19 LANCE NEFF DO Nov 10, 2021 06:00
[2021-11-09 14:28] LABS: BASOPHILS % (AUTO) 0 % (0-10); EOSINOPHILS % (AUTO) 0 % (0-10); HEMATOCRIT 40 % (35-52); HEMOGLOBIN 13.3 g/dL (11.5-16.0); LYMPHOCYTES # (AUTO) 2.4 10^3/uL (1.0-4.0); LYMPHOCYTES % (AUTO) 22 % (12-44); MEAN CORPUSCULAR HEMOGLOBIN 29 pg (25-34); MEAN CORPUSCULAR HGB CONC 33 g/dL (32-36); MEAN CORPUSCULAR VOLUME 86 fL (80-99); MEAN PLATELET VOLUME 9.7 fL (9.0-12.2); MONOCYTES # (AUTO) 0.4 10^3/uL (0.0-1.0); MONOCYTES % (AUTO) 4 % (0-12); NEUTROPHILS # (AUTO) 7.7 10^3/uL (1.8-7.8); NEUTROPHILS % (AUTO) 72 % (42-75); PLATELET COUNT 323 10^3/uL (130-400); WHITE BLOOD COUNT 10.7 10^3/uL (4.3-11.0)
[2021-11-09 14:37] LABS: ALBUMIN 4.4 GM/DL (3.2-4.5)
[2021-11-09 14:38] LABS: CALCIUM 9.5 MG/DL (8.5-10.1)
[2021-11-09 14:40] LABS: TOTAL PROTEIN 7.4 GM/DL (6.4-8.2)
[2021-11-09 14:41] LABS: BILIRUBIN,TOTAL 0.2 MG/DL (0.1-1.0)
[2021-11-09 14:43] LABS: CREATININE SERUM 0.81 MG/DL (0.60-1.30)
--- NOTE | 2021-11-09 14:48 | Diagnostic Imaging Report ---
INDICATION: Shortness of air COMPARISON: None available. TECHNIQUE: Single radiograph of the chest dated 11/09/2021. FINDINGS: The cardiac silhouette is within normal limits in size. No significant pulmonary vascular congestion. Patchy bilateral mild interstitial pulmonary opacities are noted bilaterally. No pleural effusion. No pneumothorax. No acute osseous abnormality. IMPRESSION: Mild patchy bilateral pulmonary infiltrates, potentially related to underlying pneumonia. Dictated by: Dictated on workstation # [id number]
[2021-11-09 15:52] VITALS: BP 128/72
== END 2021-11-09 15:52 | disposition home or self-care (01) ==
LOC: EDUNIT# 14:04 → ER 14:06
DX: U07.1 COVID-19 (principal); R20.2 Paresthesia of skin; F41.9 Anxiety disorder, unspecified; F32.9 Major depressive disorder, single episode, unspecified; Z73.0 Burn-out; Z88.5 Allergy status to narcotic agent; Z79.899 Other long term (current) drug therapy; Z32.02 Encounter for pregnancy test, result negative
CPT/HCPCS: 36415; 71045; 80053; 84703; 85025; 85379; 86141